=== PATIENT | female | born 1940 | race Caucasian/White ===

== ENCOUNTER 2016-07-28 10:14 | Inpatient (IN) | payer OTHER, MEDICAID ==
[~2016-07-28] VITALS: Ht 154.9 cm; Wt 62.1 kg
[2016-07-28 11:03] LABS: BASOPHIL % 0.3 % (0-2); PLATELET COUNT 296 x10^3mcL (130-400); RED CELL DISTRIBUTION WIDTH 13.2 % (11.5-14.5)
[2016-07-28] MEDS ORDERED: AMIODARONE HCL200 MG PO (11:11)
[2016-07-28] MEDS ORDERED: SYNTHROID0.075 MG PO (11:11)
[2016-07-28] MEDS ORDERED: COUMADIN3 MG PO (11:11)
[2016-07-28 11:17] LABS: microscopic required? YES; urine erythrocyte NEGATIVE (NEGATIVE)
[2016-07-28 11:33] LABS: CARBON DIOXIDE 26.7 mmol/L (21-32); CHLORIDE SERUM 103 mmol/L (98-107); CREATININE SERUM 1.3 mg/dL (0.6-1.0); GLUCOSE SERUM 92 mg/dL (74-106); POTASSIUM SERUM 4.2 mmol/L (3.5-5.1); SODIUM SERUM 140 mmol/L (136-145)
[2016-07-28 11:36] LABS: ALBUMIN 3.7 g/dL (3.4-5.0); ALKALINE PHOSPHATASE 62 U/L (46-116); ALT/SGPT 16 U/L (14-59); AST/SGOT 12 U/L (15-37); BILIRUBIN TOTAL 0.3 mg/dL (0.20-1.00); CHOLESTEROL 178 mg/dL (<200); CHOLESTEROL/HDL RATIO 2.8; HDL CHOLESTEROL 63 mg/dL (40-60); LIPASE 114 IU/L (73-393); TOTAL PROTEIN, SERUM 6.9 g/dL (6.4-8.2); TRIGLYCERIDES 103 mg/dL (<150)
[2016-07-28 11:42] LABS: T3 TOTAL 0.76 ng/mL
[2016-07-28 11:45] LABS: FREE T4 2.1 ng/dL (0.76-1.46)
[2016-07-28 11:47] LABS: FREE THYROXINE INDEX 5.6 ug/dL (1.4-4.5); T4(THYROXINE) 14.4 ug/dL (4.7-13.3)
[2016-07-28 12:29] LABS: MAGNESIUM 1.9 mg/dL (1.8-2.4); PHOSPHOROUS 3.1 mg/dL (2.5-4.9)
[2016-07-28 12:47] VITALS: BP 134/67
[2016-07-28] MEDS ORDERED: TRAZODONE100 MG PO (14:07)
[2016-07-28] MEDS ORDERED: NEU300 PO (14:10)
[2016-07-28] MEDS ORDERED: PRAVACHOL20 MG PO (14:11)
[2016-07-28] MEDS ORDERED: HYDRALAZINE HCL25 MG PO (14:11)
[2016-07-28 17:17] VITALS: BP 109/44
[2016-07-28 19:39] VITALS: BP 116/47
[2016-07-29] VITALS (7 sets, daily range): BP systolic 113–151; BP diastolic 42–64; Ht 154.9 cm; Wt 62.1 kg
[2016-07-29 06:28] LABS: CALCIUM 8.6 mg/dL (8.5-10.1); CHLORIDE SERUM 110 mmol/L (98-107); CREATININE SERUM 1.2 mg/dL (0.6-1.0); GLUCOSE SERUM 94 mg/dL (74-106); POTASSIUM SERUM 4.1 mmol/L (3.5-5.1); SODIUM SERUM 145 mmol/L (136-145)
[2016-07-30 06:28] VITALS: BP 130/57
[2016-07-30 06:53] LABS: BASOPHIL % 0.4 % (0-2); PLATELET COUNT 241 x10^3mcL (130-400); RED CELL DISTRIBUTION WIDTH 13.1 % (11.5-14.5)
[2016-07-30 07:02] LABS: CALCIUM 8.9 mg/dL (8.5-10.1); CARBON DIOXIDE 28.3 mmol/L (21-32); CHLORIDE SERUM 105 mmol/L (98-107); GLUCOSE SERUM 96 mg/dL (74-106); SODIUM SERUM 139 mmol/L (136-145)
[2016-07-30 10:21] VITALS: BP 112/46
[2016-07-30 13:07] VITALS: BP 115/48
[2016-07-30] MEDS ORDERED: COU5 PO (15:22)
[2016-07-30] MEDS ORDERED: COR200 PO (15:23)
[2016-07-30] MEDS ORDERED: DILTIAZEM30 M1 PO (15:25)
[2016-07-30] MEDS ORDERED: LIO10 PO (15:25)
[2016-07-30] MEDS ORDERED: ASPIR LOW81 MG PO (15:26)
== END 2016-07-30 16:19 | disposition home or self-care (01) | DRG 308 ==
LOC: ED 10:14 → DU 11:51
PROVIDERS: Specialist; ADMIT Family Medicine
DX: I48.2 Chronic atrial fibrillation (principal); N17.0 Acute kidney failure with tubular necrosis; I50.43 Acute on chronic combined systolic (congestive) and diastolic (congestive) heart failure; I11.0 Hypertensive heart disease with heart failure; R55 Syncope and collapse; E78.5 Hyperlipidemia, unspecified; J84.10 Pulmonary fibrosis, unspecified; G62.9 Polyneuropathy, unspecified; E03.9 Hypothyroidism, unspecified; G47.00 Insomnia, unspecified; Z79.01 Long term (current) use of anticoagulants
CPT/HCPCS: 83880; 84439; J1940; J3475; J3490; J7030; J7040; Q0092

== ENCOUNTER 2017-03-03 11:37 | Inpatient (IN) | payer OTHER, MEDICAID ==
[~2017-03-03] VITALS: Ht 154.9 cm; Wt 65.1 kg
[~2017-03-03 11:37] MED LIST: AMIODARONE HCL200 MG PO; ASPIR LOW81 MG PO; COR200 PO; COU5 PO; COUMADIN3 MG PO; DILTIAZEM30 M1 PO; HYDRALAZINE HCL25 MG PO; LIO10 PO; NEU300 PO; PRAVACHOL20 MG PO; SYNTHROID0.075 MG PO; TRAZODONE100 MG PO
[2017-03-03 12:32] LABS: BASOPHIL % 1.5 % (0-2); PLATELET COUNT 244 x10^3mcL (130-400)
[2017-03-03 13:28] LABS: CALCIUM 9.1 mg/dL (8.5-10.1); CARBON DIOXIDE 27.7 mmol/L (21-32); CHLORIDE SERUM 104 mmol/L (98-107); CREATININE SERUM 1.2 mg/dL (0.6-1.0); GLUCOSE SERUM 98 mg/dL (74-106); POTASSIUM SERUM 3.6 mmol/L (3.5-5.1); SODIUM SERUM 143 mmol/L (136-145)
[2017-03-03 13:34] LABS: ALBUMIN 4.1 g/dL (3.4-5.0); ALKALINE PHOSPHATASE 61 U/L (46-116); ALT/SGPT 21 U/L (14-59); AST/SGOT 15 U/L (15-37); BILIRUBIN TOTAL 0.4 mg/dL (0.20-1.00); TOTAL PROTEIN, SERUM 7.6 g/dL (6.4-8.2)
[2017-03-03 13:43] LABS: AMPHETAMINE QUAL UR NONE DETECTED (NEG <=1000)
[2017-03-03 13:44] LABS: FREE T4 2.01 ng/dL (0.76-1.46)
[2017-03-03 13:47] LABS: T3 TOTAL 0.77 ng/mL; T4(THYROXINE) 15.1 ug/dL (4.7-13.3)
[2017-03-03 14:12] LABS: microscopic required? YES; urine erythrocyte TRACE (NEGATIVE)
[2017-03-03 14:20] LABS: PHOSPHOROUS 2.5 mg/dL (2.5-4.9)
[2017-03-03 14:22] LABS: CHOLESTEROL/HDL RATIO 2.7
[2017-03-03 14:50] VITALS: BP 173/73
[2017-03-03] MEDS ORDERED: COR200 PO (16:40)
[2017-03-03] MEDS ORDERED: HCTZ/TRIAMTEREN1 CA1 PO (16:43)
[2017-03-03] MEDS ORDERED: COU1 PO (16:45)
[2017-03-03] MEDS ORDERED: COUMADIN3 MG PO (16:46)
[2017-03-03 18:27] VITALS: BP 106/76
[2017-03-03 19:20] VITALS: BP 89/50
[2017-03-03 20:32] VITALS: BP 101/50
[2017-03-04 05:56] VITALS: BP 107/52
[2017-03-04 07:30] LABS: BASOPHIL % 0.5 % (0-2); PLATELET COUNT 214 x10^3mcL (130-400); RED CELL DISTRIBUTION WIDTH 12.9 % (11.5-14.5)
[2017-03-04 07:47] LABS: CALCIUM 8.9 mg/dL (8.5-10.1); CARBON DIOXIDE 25.2 mmol/L (21-32); CHLORIDE SERUM 106 mmol/L (98-107); CREATININE SERUM 1.3 mg/dL (0.6-1.0); GLUCOSE SERUM 102 mg/dL (74-106); POTASSIUM SERUM 3.3 mmol/L (3.5-5.1); SODIUM SERUM 143 mmol/L (136-145)
[2017-03-04 09:30] VITALS: BP 92/43
[2017-03-04 13:13] VITALS: BP 93/60
[2017-03-04 16:46] VITALS: BP 105/47
[2017-03-04 21:58] VITALS: BP 101/56
[2017-03-05 06:04] VITALS: BP 106/69
[2017-03-05 07:47] LABS: CALCIUM 8.1 mg/dL (8.5-10.1); CARBON DIOXIDE 24.1 mmol/L (21-32); CHLORIDE SERUM 107 mmol/L (98-107); CREATININE SERUM 1.1 mg/dL (0.6-1.0); GLUCOSE SERUM 88 mg/dL (74-106); POTASSIUM SERUM 3.6 mmol/L (3.5-5.1); SODIUM SERUM 142 mmol/L (136-145)
[2017-03-05 08:14] LABS: BASOPHIL % 0.5 % (0-2); PLATELET COUNT 196 x10^3mcL (130-400); RED CELL DISTRIBUTION WIDTH 13.1 % (11.5-14.5)
[2017-03-05 09:11] VITALS: BP 91/43
[2017-03-05 09:13] VITALS: BP 91/43
[2017-03-05 14:00] VITALS: BP 126/69
[2017-03-05] MEDS ORDERED: AMIODARONE HCL200 MG PO (14:38)
[2017-03-05] MEDS ORDERED: CARDIZEM30 MG PO (14:44)
[2017-03-05] MEDS ORDERED: HYDROCHLOROTHIA25 MG PO (14:45)
[2017-03-05] MEDS ORDERED: BD LACTINEX1.4 MG PO (14:58)
[2017-03-05] MEDS ORDERED: KEFLEX500 M1 PO (14:58)
== END 2017-03-05 16:00 | disposition home or self-care (01) | DRG 308 ==
LOC: ED 11:37 → DU 13:46
PROVIDERS: Emergency Medicine; Family Medicine
DX: I48.91 Unspecified atrial fibrillation (principal); N17.0 Acute kidney failure with tubular necrosis; N39.0 Urinary tract infection, site not specified; I42.9 Cardiomyopathy, unspecified; I16.0 Hypertensive urgency; I10 Essential (primary) hypertension; E87.6 Hypokalemia; G47.00 Insomnia, unspecified; D64.9 Anemia, unspecified; E78.2 Mixed hyperlipidemia; E03.9 Hypothyroidism, unspecified; Z79.01 Long term (current) use of anticoagulants; Z79.82 Long term (current) use of aspirin; Z68.27 Body mass index [BMI] 27.0-27.9, adult
CPT/HCPCS: 83880; 84439; 97110-GP; J0360; J0696; J2405; J3490; J7030; J7040; Q0092

== ENCOUNTER 2017-09-11 15:43 | Inpatient (IN) | payer OTHER, MEDICAID ==
[~2017-09-11] VITALS: Ht 154.9 cm; Wt 65.9 kg
[~2017-09-11 15:43] MED LIST changes: +BD LACTINEX1.4 MG PO; +CARDIZEM30 MG PO; +COU1 PO; +HCTZ/TRIAMTEREN1 CA1 PO; +HYDROCHLOROTHIA25 MG PO; +KEFLEX500 M1 PO
[2017-09-11 15:48] VITALS: Ht 154.9 cm; Wt 65.9 kg
[2017-09-11 16:26] LABS: BASOPHIL % 0.4 % (0-2); PLATELET COUNT 280 x10^3mcL (130-400); RED CELL DISTRIBUTION WIDTH 13.3 % (11.5-14.5)
[2017-09-11 16:41] LABS: ALBUMIN 3.7 g/dL (3.4-5.0); ALKALINE PHOSPHATASE 58 U/L (46-116); ALT/SGPT 16 U/L (14-59); AST/SGOT 10 U/L (15-37); CARBON DIOXIDE 26.1 mmol/L (21-32); CHLORIDE SERUM 101 mmol/L (98-107); CREATININE SERUM 1.8 mg/dL (0.6-1.0); GLUCOSE SERUM 131 mg/dL (74-106); POTASSIUM SERUM 3.7 mmol/L (3.5-5.1); SODIUM SERUM 136 mmol/L (136-145); TOTAL PROTEIN, SERUM 6.9 g/dL (6.4-8.2)
[2017-09-11] MEDS ORDERED: COUMADIN3 MG PO (17:42)
[2017-09-11 19:44] VITALS: BP 139/94
[2017-09-11 21:08] VITALS: BP 112/63
[2017-09-12] VITALS (7 sets, daily range): BP systolic 101–169; BP diastolic 53–68
[2017-09-12 11:30] LABS: FREE T4 1.37 ng/dL (0.76-1.46); FREE THYROXINE INDEX 3.6 ug/dL (1.4-4.5); T4(THYROXINE) 9.9 ug/dL (4.7-13.3)
[2017-09-12 11:33] LABS: T3 TOTAL 0.65 ng/mL
[2017-09-13 05:54] VITALS: BP 136/50
[2017-09-13 06:53] LABS: BASOPHIL % 0.4 % (0-2); PLATELET COUNT 216 x10^3mcL (130-400); RED CELL DISTRIBUTION WIDTH 13.1 % (11.5-14.5)
[2017-09-13 07:20] LABS: CALCIUM 8.5 mg/dL (8.5-10.1); CHLORIDE SERUM 102 mmol/L (98-107); GLUCOSE SERUM 82 mg/dL (74-106); MAGNESIUM 1.9 mg/dL (1.8-2.4); POTASSIUM SERUM 3.8 mmol/L (3.5-5.1); SODIUM SERUM 136 mmol/L (136-145)
[2017-09-13 09:33] VITALS: BP 142/57
[2017-09-13 10:15] VITALS: BP 142/57
== END 2017-09-13 11:24 | disposition home or self-care (01) | DRG 308 ==
LOC: ED 15:43 → DU 17:55
PROVIDERS: Emergency Medicine; Internal Medicine Pulmonary Disease
DX: I48.91 Unspecified atrial fibrillation (principal); N17.0 Acute kidney failure with tubular necrosis; I13.0 Hypertensive heart and chronic kidney disease with heart failure and stage 1 through stage 4 chronic kidney disease, or unspecified chronic kidney disease; I50.32 Chronic diastolic (congestive) heart failure; N18.3 Chronic kidney disease, stage 3 (moderate); E03.9 Hypothyroidism, unspecified; Z68.26 Body mass index [BMI] 26.0-26.9, adult; Z79.01 Long term (current) use of anticoagulants
CPT/HCPCS: 83880; 84439; J3490; Q0092

== ENCOUNTER 2017-09-16 05:18 | Emergency (ER) | payer OTHER, MEDICAID ==
[~2017-09-16] VITALS: Ht 154.9 cm; Wt 64.0 kg
[2017-09-16 05:23] VITALS: Ht 154.9 cm; Wt 64.0 kg
[2017-09-16 06:08] LABS: BASOPHIL % 0.5 % (0-2); PLATELET COUNT 260 x10^3mcL (130-400)
[2017-09-16 06:22] LABS: CALCIUM 8.8 mg/dL (8.5-10.1); CARBON DIOXIDE 26.8 mmol/L (21-32); CHLORIDE SERUM 105 mmol/L (98-107); CREATININE SERUM 0.9 mg/dL (0.6-1.0); GLUCOSE SERUM 101 mg/dL (74-106); POTASSIUM SERUM 3.7 mmol/L (3.5-5.1); SODIUM SERUM 141 mmol/L (136-145)
[2017-09-16 06:37] LABS: ALBUMIN 3.9 g/dL (3.4-5.0); ALKALINE PHOSPHATASE 54 U/L (46-116); ALT/SGPT 12 U/L (14-59); AST/SGOT 11 U/L (15-37); BILIRUBIN TOTAL 0.3 mg/dL (0.20-1.00); PHOSPHOROUS 3.4 mg/dL (2.5-4.9); TOTAL PROTEIN, SERUM 6.8 g/dL (6.4-8.2)
[2017-09-16 06:39] LABS: UA SPECIFIC GRAVITY <=1.005 (1.005-1.035); microscopic required? YES; urine erythrocyte TRACE (NEGATIVE)
[2017-09-16 07:49] LABS: T3 TOTAL 0.74 ng/mL
[2017-09-16 08:07] LABS: FREE T4 1.38 ng/dL (0.76-1.46); FREE THYROXINE INDEX 3.8 ug/dL (1.4-4.5); T4(THYROXINE) 10.2 ug/dL (4.7-13.3)
[2017-09-16 09:33] VITALS: BP 120/72
== END 2017-09-16 09:33 | disposition home or self-care (01) ==
LOC: ED 05:18
PROVIDERS: Emergency Medicine
DX: I48.2 Chronic atrial fibrillation (principal); E07.9 Disorder of thyroid, unspecified; I10 Essential (primary) hypertension; Z90.89 Acquired absence of other organs
CPT/HCPCS: 84439; J3475; J3490; J7040